=== PATIENT | male | born 1990 | race Caucasian/White ===

== ENCOUNTER 2020-07-21 10:54 | Emergency (ER) | payer MEDICAID, SELFPAY ==
--- NOTE | ~2020-07-21 | US_ITS ---
EXAMINATION: US ABDOMEN LIMITED CLINICAL INFORMATION: Right upper quadrant pain, elevated LFTs. COMPARISON: None TECHNIQUE: Real-time imaging of the right upper quadrant abdominal viscera. FINDINGS: PANCREAS: Visualized portions unremarkable. The tail is obscured by bowel gas shadowing. LIVER: Unremarkable. GALLBLADDER: Unremarkable. COMMON BILE DUCT: Normal in caliber measuring 0.5 cm in diameter. RIGHT KIDNEY: 11.0 cm. Unremarkable. FREE FLUID: None. US/US abdomen limited IMPRESSION: Unremarkable abdominal ultrasound. No significant hepatic abnormality.
[2020-07-21 11:03] VITALS: BP 120/86; PULSE 103; RESP 16; TEMP 38.7; O2SAT 94; BMI 29.5
--- NOTE | 2020-07-21 11:37 | ED.NAVMDI ---
HPI - Nausea/Vomiting/Diarrhea General Chief complaint: Nausea/Vomiting/Diarrhea Stated complaint: covid+ - vomiting Time Seen by Provider: 07/21/20 11:05 Source: patient Mode of arrival: ambulatory Limitations: no limitations History of Present Illness HPI Narrative: 30 y/o male who was recently diagnosed with COVID-19 on 07/15 presents to the ED with 3 days of nausea, vomiting and upper abdominal pain. He has not been able to tolerate any PO at home. Every time he tried he vomits. He reports loose stools 2 times per day for the last 2-3 days. No blood in vomitus or stool. He continues to have intermittent fevers with his COVID diagnosis. He has a dry cough but no SOB, chest pain or difficulty breathing. He states the abdominal pain is in the epigastric area and is burning and squeezing in nature. It comes and goes. MD elicited complaint: nausea, vomiting, diarrhea and abdominal pain Pertinent past history: other (COVID-19) Onset (ago): day(s) (3) Description of vomiting: watery Description of diarrhea: loose Associated nausea: Yes Associated abdominal pain: Yes Location of pain: epigastric Radiation: LUQ and RUQ Pain consistency: intermittent Severity: moderate Quality: stabbing and aching Exacerbating factors: eating Relieving factors: none Associated symptoms: myalgias, cough, fever/chills, headaches, loss of appetite, malaise, nausea/vomiting and fatigue Related Data Previous Rx's Medication Instructions Recorded ondansetron 4 mg PO Q6H PRN #10 tab 07/21/20 Allergies Allergy/AdvReac Type Severity Reaction Status Date / Time No Known Allergies Allergy Verified 07/21/20 11:06 Review of Systems Review of Systems: Constitutional: + Fever, + Chills ENT/Mouth: No sore throat, No Rhinorrhea, No Swallowing Difficulty Eyes: No Eye Pain, No Swelling, No Redness Cardiovascular: No Chest Pain, No SOB, No Orthopnea, No Edema Respiratory: No Cough, No Sputum, No Wheezing, No dyspnea Gastrointestinal: + Nausea, + Vomiting, + Diarrhea, + abdominal Pain, No Hematochezia, No Melena Genitourinary: No Dysuria, No Urinary Frequency, No Hematuria Musculoskeletal: No joint pain, + Myalgias Skin: No Skin Lesions, No rash Neuro: No Weakness, No Numbness, No Dizziness, + Headache Psych: No Anxiety/Panic, No Depression Heme/Lymph: No Bruising, No Lymphadenopathy Endocrine: No Polyuria, No Polydipsia Gastrointestinal: Gastrointestinal: Reports nausea PMFSH Past Medical History Attestation statement: The following information was validated with the patient. Medical History Asthma Social History Social History Alcohol intake: never Smoking Status: Never smoker Use of substances other than those prescribed or required for medical reasons: No Advance Directives: No Advance Directives Information Provided: No Physical Exam Vital Signs: Vital Signs: Last Vital Signs Temp 100.4 F 07/21/20 14:35 Pulse 91 07/21/20 14:35 Resp 15 07/21/20 14:35 BP 115/74 07/21/20 14:35 Pulse Ox 96 07/21/20 14:35 Body Mass Index 29.5 Appearance: Alert. Oriented X3. Appears ill Eyes: Pupils equal, round and reactive to light. ENT: Pharynx normal. Neck: Normal inspection. Neck supple. CVS: Tachycardia, regular rhythm. Pulses normal. Respiratory: No respiratory distress. Breath sounds normal. Abdomen: Soft with epigastric tenderness, no rebound or guarding. no RUQ tenderness, no hepatosplenomegaly. hypoeractive BS x4 Skin: Skin warm and dry. Normal skin color. Normal skin turgor. No rashes. Extremities: No lower extremity edema. Neuro: Oriented X 3. No motor deficit. No sensory deficit. Course Course Course Narrative: 30 y/o male with known COVID-19 dx on 07/15 presenting with N/V/D and epigastric abdominal pain. He arrives febrile and slightly tachycardic. Minimal respiratory symptoms. Will check labs, hydrate and give Zofran and PO tylenol once nausea improves. Reevaluation(s) Reevaluation #1: Nausea improved after zofran. toelrating PO. No vomiting episodes here, no diarrhea. His labs show normal WBC. Mild elevation in transaminasers with normal bilirubins, liekly due to COVID/acute vomiting but will get RUQ U/S given his pain. Negative Hooks's sign. Doubt acute cholecystitis. Reevaluation #2: Liver U/S is normal. Fever improved. Tolerating PO. He is clinically stable for discharge with Rx for antiemetic and plan to f/u with PCP. Patient agrees with plan. MDM - Nausea/Vomiting/Diarrhea Lab Data Result diagrams: 07/21/20 11:49 07/21/20 11:49 Labs: Lab Results 07/21/20 07/21/20 07/21/20 Range/Units 11:49 11:49 11:49 WBC 6.7 (4.8-10.8) X10*3/uL RBC 5.06 (4.60-5.80) X10*6/uL Hgb 15.0 (14.0-18.0) g/dl Hct 44.7 (42-52) % MCV 88.3 (80-98) fL MCH 29.6 (27.0-33.0) pg MCHC 33.6 (31.0-36.0) g/dl RDW 12.6 (11.0-16.0) % Plt Count 193 (160-400) X10*3/uL MPV 9.8 (9.4-12.4) fL Immature Gran % (Auto) 0.3 (0.0-0.4) % Neut % (Auto) 74.9 H (45-73) % Lymph % (Auto) 20.5 (20-40) % [place] % (Auto) 4.2 (2-11) % Eos % (Auto) 0.0 (0-4) % Baso % (Auto) 0.1 (0-2) % Lymph # (Auto) 1.4 (1.2-4.9) X10*3/uL [place] # (Auto) 0.3 (0.1-1.2) X10*3/uL Eos # (Auto) 0.0 (0.0-0.4) X10*3/uL Baso # (Auto) 0.0 (0.0-0.2) X10*3/uL Abs Immat Gran (auto) 0.02 (0.00-0.03) X10*3/uL Absolute Neuts (auto) 5.0 (2.0-8.3) X10*3/uL Absolute Nucleated RBC 0.000 (0.0-0.012) X10*3/uL Nucleated RBC % (auto) 0.0 (0.0-0.2) /100WBC Hold Blue Top SEE NOTE Sodium 139 (135-145) mmol/L Potassium 3.9 (3.3-5.1) mmol/L Chloride 101 (96-108) mmol/L Carbon Dioxide 27 (22-29) mmol/L Anion Gap 15 (12-20) BUN 14 (9-16) mg/dL Creatinine 1.10 (0.5-1.4) mg/dL Estim Creat Clear Calc 111.3 Estimated GFR > 60 Random Glucose 110 (60-115) mg/dL Lactic Acid (0.5-2.0) mmol/L Calcium 9.0 (8.4-10.2) mg/dL Magnesium 1.9 (1.6-2.6) mg/dL Total Bilirubin 0.7 (0.0-1.0) mg/dL Direct Bilirubin 0.3 (0.0-0.5) mg/dL AST 73 H (5-37) U/L ALT 137 H (0-40) U/L Alkaline Phosphatase 68 (39-117) U/L Total Protein 7.2 (6.5-8.0) g/dL Albumin 4.2 (3.5-5.0) g/dL Lipase 15 (8-78) U/L Urine Color Urine Appearance Urine pH (5.0-8.0) Ur Specific [place] (1.005-1.025) Urine Protein (NEG-TRACE) MG/DL Urine Glucose (UA) (NEG) MG/DL Urine Ketones (NEG) MG/DL Urine Blood (NEG) Urine Nitrite (NEG) Ur Leukocyte Esterase (NEG) Urine RBC (0) /HPF Urine WBC (0-4) /HPF Ur Squamous Epith Cells /LPF Urine Bacteria /LPF Urine Mucus /LPF 07/21/20 07/21/20 Range/Units 11:49 11:49 WBC (4.8-10.8) X10*3/uL RBC (4.60-5.80) X10*6/uL Hgb (14.0-18.0) g/dl Hct (42-52) % MCV (80-98) fL MCH (27.0-33.0) pg MCHC (31.0-36.0) g/dl RDW (11.0-16.0) % Plt Count (160-400) X10*3/uL MPV (9.4-12.4) fL Immature Gran % (Auto) (0.0-0.4) % Neut % (Auto) (45-73) % Lymph % (Auto) (20-40) % [place] % (Auto) (2-11) % Eos % (Auto) (0-4) % Baso % (Auto) (0-2) % Lymph # (Auto) (1.2-4.9) X10*3/uL [place] # (Auto) (0.1-1.2) X10*3/uL Eos # (Auto) (0.0-0.4) X10*3/uL Baso # (Auto) (0.0-0.2) X10*3/uL Abs Immat Gran (auto) (0.00-0.03) X10*3/uL Absolute Neuts (auto) (2.0-8.3) X10*3/uL Absolute Nucleated RBC (0.0-0.012) X10*3/uL Nucleated RBC % (auto) (0.0-0.2) /100WBC Hold Blue Top Sodium (135-145) mmol/L Potassium (3.3-5.1) mmol/L Chloride (96-108) mmol/L Carbon Dioxide (22-29) mmol/L Anion Gap (12-20) BUN (9-16) mg/dL Creatinine (0.5-1.4) mg/dL Estim Creat Clear Calc Estimated GFR Random Glucose (60-115) mg/dL Lactic Acid 1.0 (0.5-2.0) mmol/L Calcium (8.4-10.2) mg/dL Magnesium (1.6-2.6) mg/dL Total Bilirubin (0.0-1.0) mg/dL Direct Bilirubin (0.0-0.5) mg/dL AST (5-37) U/L ALT (0-40) U/L Alkaline Phosphatase (39-117) U/L Total Protein (6.5-8.0) g/dL Albumin (3.5-5.0) g/dL Lipase (8-78) U/L Urine Color YELLOW Urine Appearance CLEAR Urine pH 6.5 (5.0-8.0) Ur Specific [place] 1.025 (1.005-1.025) Urine Protein 1+ H (NEG-TRACE) MG/DL Urine Glucose (UA) NEG (NEG) MG/DL Urine Ketones 15 (NEG) MG/DL Urine Blood NEG (NEG) Urine Nitrite NEG (NEG) Ur Leukocyte Esterase NEG (NEG) Urine RBC 0-2 (0) /HPF Urine WBC 0-2 (0-4) /HPF Ur Squamous Epith Cells NONE /LPF Urine Bacteria NONE /LPF Urine Mucus TRACE /LPF Discharge Plan Discharge Clinical Impression: Gastroenteritis, COVID-19 Patient Disposition: Home, Self-Care Instructions: Acute Nausea and Vomiting (ED), COVID-19 (Coronavirus Disease 2019) (ED) Additional Instructions: Your lab workup today showed mild elevation in your liver enzymes. Your liver ultrasound was normal. Your symptoms are likely due to COVID-19. Recommend follow up with your doctor for repeat labs to ensure resolution. Recommend over the counter Imodium or Pepto Mismol for diarrhea and upset stomach. Stick to a bland diet while you are not feeling well - soup, toast. Take the prescribed medication as needed for nausea. If you have worsening symptoms come back to the ER for further evaluation. Prescriptions: New ondansetron 4 mg tablet,disintegrating 4 mg PO Q6H PRN (Reason: nausea and vomiting) Qty: 10 RF: 0
[2020-07-21] MEDS: ondansetron HCL 4 MG/2 ML VIAL IVPUSH (11:50)
[2020-07-21] MEDS: 0.9 % Sodium Chloride 1,000 ML 999 ML IVCONT (11:51)
--- NOTE | 2020-07-21 11:57 | PC.NURSE ---
Tylenol held at this time r/t pts nausea.
[2020-07-21 12:00] LABS: MANUAL DIFF FLAG NO
[2020-07-21 12:02] LABS: Glucose Urine UA NEG (NEG); Leukocyte Esterase Urine NEG (NEG); Nitrite Urine NEG (NEG); PH 6.5 (5.0-8.0); Specific Gravity - Urine 1.025 (1.005-1.025); Urine Blood NEG (NEG); Urine Ketones 15 MG/DL (NEG); Urine Protein 1+ MG/DL (NEG-TRACE)
[2020-07-21 12:03] LABS: Basophils Percent Auto 0.1 % (0-2); Hematocrit 44.7 % (42-52); Imm Gran Abs Auto 0.02 X10*3/uL (0.00-0.03); Imm Gran Pct Auto 0.3 % (0.0-0.4); Lymphocytes Absolute Auto 1.4 X10*3/uL (1.2-4.9); Lymphocytes Percent Auto 20.5 % (20-40); Mean Corpuscular HGB Conc 33.6 g/dl (31.0-36.0); Mean Corpuscular Hemoglobin 29.6 pg (27.0-33.0); Mean Corpuscular Volume 88.3 fL (80-98); Mean Platelet Volume 9.8 fL (9.4-12.4); Monocytes Absolute Auto 0.3 X10*3/uL (0.1-1.2); Monocytes Percent Auto 4.2 % (2-11); Neutrophils Percent Auto 74.9 % (45-73); Platelet Count 193 X10*3/uL (160-400); Red Blood Count 5.06 X10*6/uL (4.60-5.80); Red Cell Distribution Width 12.6 % (11.0-16.0); White Blood Count 6.7 X10*3/uL (4.8-10.8)
[2020-07-21 12:07] LABS: Appearance Urine CLEAR; Color Urine YELLOW
[2020-07-21 12:27] LABS: Mucus Urine TRACE /LPF; RBC Urine 0-2 /HPF (0); WBC Urine 0-2 /HPF (0-4)
[2020-07-21 12:28] VITALS: BP 128/73; PULSE 92; RESP 18; TEMP 37.9; O2SAT 97
[2020-07-21] MEDS: Lidocaine HCl Viscous 2 % 15 ML SOLUTION MUCOUS MEM (12:28)
[2020-07-21] MEDS: Acetaminophen 325 MG TABLET 975 MG PO (12:28)
[2020-07-21] MEDS: Magnesium Hydrox/Alum Hydrox 30 ML ORAL.SUSP PO (12:28)
[2020-07-21] MEDS: Omeprazole 40 MG CAPSULE.DR PO (12:28)
[2020-07-21 12:33] LABS: Alanine Aminotransferase 137 U/L (0-40); Albumin Level 4.2 g/dL (3.5-5.0); Alkaline Phosphatase 68 U/L (39-117); Anion Gap 15 (12-20); Aspartate Amino Transferase 73 U/L (5-37); Bilirubin Direct 0.3 mg/dL (0.0-0.5); Bilirubin Total 0.7 mg/dL (0.0-1.0); Blood Urea Nitrogen 14 mg/dL (9-16); Carbon Dioxide 27 mmol/L (22-29); Chloride 101 mmol/L (96-108); Creatinine Clr Calc Pharmacy 111.3; Estimated Glomerular Filt Rate > 60; Glucose Random 110 mg/dL (60-115); Lipase 15 U/L (8-78); Magnesium 1.9 mg/dL (1.6-2.6); Potassium 3.9 mmol/L (3.3-5.1); Sodium 139 mmol/L (135-145); Total Protein 7.2 g/dL (6.5-8.0)
--- NOTE | 2020-07-21 12:46 | PC.NURSE ---
Pt tolerating po medications and fluids at this time. Described upper abd pain as burning.
[2020-07-21 14:35] VITALS: BP 115/74; PULSE 91; RESP 15; TEMP 38; O2SAT 96
--- NOTE | 2020-07-21 15:12 | PC.NURSE ---
pt received in bed watching videos on phone. pending ultrasound and disposition. NAD at this time, no resp sx
[2020-07-21 16:26] VITALS: PULSE 105; RESP 14; TEMP 37.9; O2SAT 95
== END 2020-07-21 16:26 | disposition home or self-care (01) ==
PROVIDERS: Physician Assistant; Emergency Provider Emergency Medicine
DX: K52.9 Noninfective gastroenteritis and colitis, unspecified (principal); R10.10 Upper abdominal pain, unspecified; R11.2 Nausea with vomiting, unspecified; R00.0 Tachycardia, unspecified; Z86.16 Personal history of COVID-19
CPT/HCPCS: 36415; 76705; 80048; 80076; 81001; 81003; 83605; 83690; 83735; 85025; 87040; 96361; 96374; 99284; 99285; J2405

== ENCOUNTER 2020-07-23 11:22 | Emergency (ER) | payer MEDICAID, SELFPAY ==
--- NOTE | ~2020-07-23 | XR_ITS ---
EXAMINATION: XR CHEST CLINICAL INFORMATION: Shortness of breath COMPARISON: None TECHNIQUE: Frontal view of the chest was obtained. FINDINGS: Cardiac silhouette is normal in size. Low lung volumes. Subtle bibasilar opacities, nonspecific. No gross pleural effusion. No pneumothorax. Subtle suspected pleural thickening of the lateral right lung apex. XR/XR chest 1V IMPRESSION: Subtle bibasilar opacities demonstrated in hypoinflated lungs. Findings suggest atelectasis, however, developing infiltrate is within the differential. Clinical correlation recommended.
[2020-07-23 11:43] VITALS: BP 146/77; PULSE 99; RESP 18; TEMP 36.8; O2SAT 93; BMI 29.5
--- NOTE | 2020-07-23 11:58 | ECG_ITS ---
Test Reason : DIFFICULTY BREATHING Blood Pressure : / mmHG Vent. Rate : 094 BPM Atrial Rate : 094 BPM P-R Int : 138 ms QRS Dur : 082 ms QT Int : 332 ms P-R-T Axes : 033 040 011 degrees QTc Int : 415 ms Normal sinus rhythm Normal ECG No previous ECGs available Referred By: Ailyn Ochoa Electronically Signed By:GARY LORENZ MD
--- NOTE | 2020-07-23 12:08 | ED.URI ---
HPI - URI/Sore Throat General Chief Complaint: Upper Respiratory Symptoms Stated Complaint: diff breathing - covid+ Time Seen by Provider: 07/23/20 11:47 Source: patient Mode of arrival: ambulatory History of Present Illness HPI Narrative: 30-year-old male with a past medical history of asthma, COVID-19 positive on 07/13/2020, presenting to the ED complaining of cough, chest discomfort, and SOB since last night. Admits chest discomfort worse with deep inspiration. Also reports continued upper abdominal pain, nausea, and decreased p.o. intake. Of note patient was seen and treated in our ED on 07/21 for upper abdominal pain, nausea/vomiting, had transaminitis and negative abdomen US. Denies fever, chills, recent travel, LE edema, history blood clots, hormone use, cigarette smoking MD elicited complaint: cough Related Data Previous Rx's Medication Instructions Recorded ondansetron 4 mg PO Q6H PRN #10 tab 07/21/20 albuterol sulfate 2 puff INHALATION Q4-6H PRN #6.7 g 07/23/20 azithromycin See Rx Instructions .ROUTE 07/23/20 .COMPLEX #6 tab benzonatate [Tessalon Perles] 100 mg PO TID PRN #14 cap 07/23/20 cefpodoxime 200 mg PO BID 7 Days #14 tab 07/23/20 Allergies Allergy/AdvReac Type Severity Reaction Status Date / Time No Known Allergies Allergy Verified 07/21/20 11:06 Review of Systems Review of Systems: Constitutional: No Fever, No Chills, + fatigue Cardiovascular: + Chest Pain, + SOB, No Dyspnea on Exertion, No Orthopnea, No Edema Respiratory: + Cough, No Sputum, No Wheezing, + Dyspnea Gastrointestinal: + Nausea, + Vomiting, No Diarrhea, No Constipation, + Abdominal pain Musculoskeletal: No joint pain, + Myalgias, No Joint Swelling Skin: No Skin Lesions, No rash Neuro: + generalized weakness, No Numbness Yes all other systems are reviewed and are negative PMFSH Past Medical History Attestation statement: The following information was validated with the patient. Medical History Asthma Social History Social History Alcohol intake: never Smoking Status: Never smoker Use of substances other than those prescribed or required for medical reasons: No Advance Directives: No Advance Directives Information Provided: No Physical Exam Vital Signs: Vital Signs: Last Vital Signs Temp 98.3 F 07/23/20 11:43 Pulse 110 H 07/23/20 14:09 Resp 18 07/23/20 11:43 BP 146/77 H 07/23/20 11:43 Pulse Ox 93 07/23/20 16:34 Body Mass Index 29.5 Const: General: cooperative and healthy appearing Orientation/consciousness: patient oriented x3 Limitations: no limitations HENMT: Head: Yes normal to inspection Ears: hearing grossly normal bilaterally General nose exam: Normal external nose present Face and sinus: Yes normal facial exam Eyes: General: appearance normal, both eyes and all related structures EOM: EOMs intact bilaterally Neck: Neck: Yes normal visual inspection and Yes no meningeal signs Chest: Chest palpation & inspection: no crepitus and tenderness (Anterior lower ribs diffusely) Resp: Effort & Inspection: normal respiratory effort Auscultation: clear to auscultation bilaterally, no wheezes and diminished lung sounds diffuse Cardio: Rate: regular rate Heart sounds: S1 normal heart sound present and S2 normal heart sound present GI: Inspection: Yes normal to inspection Palpation (GI): Soft to palpation, Tenderness to palpation present (GI) in the epigastrum, no guarding and not rigid Skin: Rashes: no rashes Wounds: no wounds Neuro: General: patient oriented x3, tone normal and no meningeal signs Extrem: General: Yes normal to inspection, Yes no pedal edema and Yes no calf tenderness Course Course Course Narrative: -no leukocytosis, D-dimer negative, ferritin/LDH/CRP elevated, troponin negative, AST/ALT elevated but improved from prior visit XR chest 1V IMPRESSION: Subtle bibasilar opacities demonstrated in hypoinflated lungs. Findings suggest atelectasis, however, developing infiltrate is within the differential. Clinical correlation recommended. >> lactic, blood cultures, and IV antibiotics ordered. Will ambulate with pulse after completion of IV antibiotics -1420--patient maintain saturation greater than 92% on RA during ambulation MDM - URI/Sore Throat MDM Narrative Medical decision making narrative: 30-year-old male with a past medical history of asthma, COVID-19 positive on 07/13/2020, presenting to the ED complaining of cough, chest discomfort, and SOB since last night. Admits chest discomfort worse with deep inspiration. Also reports continued upper abdominal pain, nausea, and decreased p.o. intake. On exam VS as, NAD, lungs are decreased breath sounds throughout, abdomen soft epigastric TTP, no calf tenderness or pedal edema. Concern for continued COVID-19 symptoms vs PE vs viral pneumonia. Lower concern for ACS/cholecystitis/lithiasis or pancreatitis with negative workup a few days ago. Plan: EKG, labs, CXR, albuterol, GI cocktail,reassess Medical Records Attestation: I reviewed the patient's medical records. Lab Data Attestation: I reviewed the patient's lab results. Result diagrams: 07/23/20 12:20 07/23/20 12:20 Labs: Lab Results 07/23/20 07/23/20 07/23/20 Range/Units 12:20 12:20 12:20 WBC 7.9 (4.8-10.8) X10*3/uL RBC 5.18 (4.60-5.80) X10*6/uL Hgb 15.3 (14.0-18.0) g/dl Hct 45.3 (42-52) % MCV 87.5 (80-98) fL MCH 29.5 (27.0-33.0) pg MCHC 33.8 (31.0-36.0) g/dl RDW 12.3 (11.0-16.0) % Plt Count 217 (160-400) X10*3/uL MPV 9.7 (9.4-12.4) fL Immature Gran % (Auto) 0.4 (0.0-0.4) % Neut % (Auto) 73.0 (45-73) % Lymph % (Auto) 20.9 (20-40) % [place] % (Auto) 5.7 (2-11) % Eos % (Auto) 0.0 (0-4) % Baso % (Auto) 0.0 (0-2) % Lymph # (Auto) 1.7 (1.2-4.9) X10*3/uL [place] # (Auto) 0.5 (0.1-1.2) X10*3/uL Eos # (Auto) 0.0 (0.0-0.4) X10*3/uL Baso # (Auto) 0.0 (0.0-0.2) X10*3/uL Abs Immat Gran (auto) 0.03 (0.00-0.03) X10*3/uL Absolute Neuts (auto) 5.8 (2.0-8.3) X10*3/uL Absolute Nucleated RBC 0.000 (0.0-0.012) X10*3/uL Nucleated RBC % (auto) 0.0 (0.0-0.2) /100WBC PT (10.8-13.0) SEC INR (0.9-1.1) APTT (24.1-38.0) SEC D-Dimer < 200 NG/ML Sodium 140 (135-145) mmol/L Potassium 3.9 (3.3-5.1) mmol/L Chloride 100 (96-108) mmol/L Carbon Dioxide 28 (22-29) mmol/L Anion Gap 16 (12-20) BUN 14 (9-16) mg/dL Creatinine 1.08 (0.5-1.4) mg/dL Estim Creat Clear Calc 113.3 Estimated GFR > 60 Random Glucose 102 (60-115) mg/dL Calcium 9.2 (8.4-10.2) mg/dL Magnesium 2.5 (1.6-2.6) mg/dL Ferritin (20-250) ng/mL Total Bilirubin 1.0 (0.0-1.0) mg/dL Direct Bilirubin 0.4 (0.0-0.5) mg/dL AST 67 H (5-37) U/L ALT 110 H (0-40) U/L Alkaline Phosphatase 74 (39-117) U/L Lactate Dehydrogenase (118-273) U/L Troponin I High Sens (<3.5-35.0) ng/L C-Reactive Protein (< or = 0.50) mg/dL B-Natriuretic Peptide (<100) pg/mL Total Protein 7.4 (6.5-8.0) g/dL Albumin 4.2 (3.5-5.0) g/dL Lipase (8-78) U/L Procalcitonin ng/mL 07/23/20 07/23/20 07/23/20 Range/Units 12:20 12:20 12:20 WBC (4.8-10.8) X10*3/uL RBC (4.60-5.80) X10*6/uL Hgb (14.0-18.0) g/dl Hct (42-52) % MCV (80-98) fL MCH (27.0-33.0) pg MCHC (31.0-36.0) g/dl RDW (11.0-16.0) % Plt Count (160-400) X10*3/uL MPV (9.4-12.4) fL Immature Gran % (Auto) (0.0-0.4) % Neut % (Auto) (45-73) % Lymph % (Auto) (20-40) % [place] % (Auto) (2-11) % Eos % (Auto) (0-4) % Baso % (Auto) (0-2) % Lymph # (Auto) (1.2-4.9) X10*3/uL [place] # (Auto) (0.1-1.2) X10*3/uL Eos # (Auto) (0.0-0.4) X10*3/uL Baso # (Auto) (0.0-0.2) X10*3/uL Abs Immat Gran (auto) (0.00-0.03) X10*3/uL Absolute Neuts (auto) (2.0-8.3) X10*3/uL Absolute Nucleated RBC (0.0-0.012) X10*3/uL Nucleated RBC % (auto) (0.0-0.2) /100WBC PT 13.5 H (10.8-13.0) SEC INR 1.1 (0.9-1.1) APTT 33.7 (24.1-38.0) SEC D-Dimer NG/ML Sodium (135-145) mmol/L Potassium (3.3-5.1) mmol/L Chloride (96-108) mmol/L Carbon Dioxide (22-29) mmol/L Anion Gap (12-20) BUN (9-16) mg/dL Creatinine (0.5-1.4) mg/dL Estim Creat Clear Calc Estimated GFR Random Glucose (60-115) mg/dL Calcium (8.4-10.2) mg/dL Magnesium (1.6-2.6) mg/dL Ferritin 2573 H (20-250) ng/mL Total Bilirubin (0.0-1.0) mg/dL Direct Bilirubin (0.0-0.5) mg/dL AST (5-37) U/L ALT (0-40) U/L Alkaline Phosphatase (39-117) U/L Lactate Dehydrogenase 346 H (118-273) U/L Troponin I High Sens < 3.5 (<3.5-35.0) ng/L C-Reactive Protein 6.83 H (< or = 0.50) mg/dL B-Natriuretic Peptide (<100) pg/mL Total Protein (6.5-8.0) g/dL Albumin (3.5-5.0) g/dL Lipase 26 (8-78) U/L Procalcitonin ng/mL 07/23/20 07/23/20 Range/Units 12:20 12:20 WBC (4.8-10.8) X10*3/uL RBC (4.60-5.80) X10*6/uL Hgb (14.0-18.0) g/dl Hct (42-52) % MCV (80-98) fL MCH (27.0-33.0) pg MCHC (31.0-36.0) g/dl RDW (11.0-16.0) % Plt Count (160-400) X10*3/uL MPV (9.4-12.4) fL Immature Gran % (Auto) (0.0-0.4) % Neut % (Auto) (45-73) % Lymph % (Auto) (20-40) % [place] % (Auto) (2-11) % Eos % (Auto) (0-4) % Baso % (Auto) (0-2) % Lymph # (Auto) (1.2-4.9) X10*3/uL [place] # (Auto) (0.1-1.2) X10*3/uL Eos # (Auto) (0.0-0.4) X10*3/uL Baso # (Auto) (0.0-0.2) X10*3/uL Abs Immat Gran (auto) (0.00-0.03) X10*3/uL Absolute Neuts (auto) (2.0-8.3) X10*3/uL Absolute Nucleated RBC (0.0-0.012) X10*3/uL Nucleated RBC % (auto) (0.0-0.2) /100WBC PT (10.8-13.0) SEC INR (0.9-1.1) APTT (24.1-38.0) SEC D-Dimer NG/ML Sodium (135-145) mmol/L Potassium (3.3-5.1) mmol/L Chloride (96-108) mmol/L Carbon Dioxide (22-29) mmol/L Anion Gap (12-20) BUN (9-16) mg/dL Creatinine (0.5-1.4) mg/dL Estim Creat Clear Calc Estimated GFR Random Glucose (60-115) mg/dL Calcium (8.4-10.2) mg/dL Magnesium (1.6-2.6) mg/dL Ferritin (20-250) ng/mL Total Bilirubin (0.0-1.0) mg/dL Direct Bilirubin (0.0-0.5) mg/dL AST (5-37) U/L ALT (0-40) U/L Alkaline Phosphatase (39-117) U/L Lactate Dehydrogenase (118-273) U/L Troponin I High Sens (<3.5-35.0) ng/L C-Reactive Protein (< or = 0.50) mg/dL B-Natriuretic Peptide < 10 (<100) pg/mL Total Protein (6.5-8.0) g/dL Albumin (3.5-5.0) g/dL Lipase (8-78) U/L Procalcitonin 0.08 ng/mL Discharge Plan Discharge Clinical Impression: Pneumonia due to COVID-19 virus Patient Disposition: Home, Self-Care Instructions: COVID-19 (Coronavirus Disease 2019) (ED) Additional Instructions: You have COVID pneumonia, azithromycin and cefpodoxime or antibiotics, take as prescribed It is important for you to use albuterol inhaler at home for wheezing/shortness of breath Tessalon Perles for cough Call your doctor for close follow-up Rest, stay hydrated You can anticipate to be lethargic, feel slightly short of breath and have some chest pain, however this becomes worse or constant, you fever unresolved with Tylenol Motrin, or unable to eat or drink please return to the ED immediately Prescriptions: New azithromycin 250 mg tablet See Rx Instructions .ROUTE .COMPLEX Qty: 6 RF: 0 benzonatate [Tessalon Perles] 100 mg capsule 100 mg PO TID PRN (Reason: cough) Qty: 14 RF: 0 albuterol sulfate 90 mcg/actuation HFA aerosol inhaler 2 puff inhalation Q4-6H PRN (Reason: shortness of breath or wheezing) Qty: 6.7 RF: 0 cefpodoxime 200 mg tablet 200 mg PO BID 7 Days Qty: 14 RF: 0 No Action ondansetron 4 mg tablet,disintegrating 4 mg PO Q6H PRN (Reason: nausea and vomiting) Qty: 10 RF: 0 Referrals: [facility] [Primary Care Provider] - 2 days
[2020-07-23] MEDS: Albuterol Sulfate 90 MCG 8 GM INHALER 4 PUFF INHALE (12:15)
[2020-07-23 12:25] VITALS: O2SAT 94
[2020-07-23 12:26] LABS: MANUAL DIFF FLAG NO
[2020-07-23 12:28] LABS: Hematocrit 45.3 % (42-52); Hemoglobin 15.3 g/dl (14.0-18.0); Imm Gran Abs Auto 0.03 X10*3/uL (0.00-0.03); Imm Gran Pct Auto 0.4 % (0.0-0.4); Lymphocytes Absolute Auto 1.7 X10*3/uL (1.2-4.9); Lymphocytes Percent Auto 20.9 % (20-40); Mean Corpuscular HGB Conc 33.8 g/dl (31.0-36.0); Mean Corpuscular Hemoglobin 29.5 pg (27.0-33.0); Mean Corpuscular Volume 87.5 fL (80-98); Mean Platelet Volume 9.7 fL (9.4-12.4); Monocytes Absolute Auto 0.5 X10*3/uL (0.1-1.2); Monocytes Percent Auto 5.7 % (2-11); Neutrophils Absolute Auto 5.8 X10*3/uL (2.0-8.3); Platelet Count 217 X10*3/uL (160-400); Red Blood Count 5.18 X10*6/uL (4.60-5.80); Red Cell Distribution Width 12.3 % (11.0-16.0); White Blood Count 7.9 X10*3/uL (4.8-10.8)
[2020-07-23] MEDS: 0.9 % Sodium Chloride 1,000 ML 999 ML IVCONT (12:29)
[2020-07-23] MEDS: ondansetron HCL 4 MG/2 ML VIAL IVPUSH (12:29)
[2020-07-23] MEDS: Famotidine/PF 20 MG/2 ML VIAL IVPUSH (12:29)
[2020-07-23 12:34] LABS: INTERNATIONAL NORM RATIO 1.1 (0.9-1.1); Prothrombin Time 13.5 SEC (10.8-13.0)
[2020-07-23 12:36] LABS: Partial Thromboplastin Time 33.7 SEC (24.1-38.0)
[2020-07-23 12:52] LABS: D Dimer < 200 NG/ML
[2020-07-23 13:00] LABS: Alanine Aminotransferase 110 U/L (0-40); Albumin Level 4.2 g/dL (3.5-5.0); Alkaline Phosphatase 74 U/L (39-117); Anion Gap 16 (12-20); Aspartate Amino Transferase 67 U/L (5-37); Bilirubin Direct 0.4 mg/dL (0.0-0.5); Blood Urea Nitrogen 14 mg/dL (9-16); Calcium 9.2 mg/dL (8.4-10.2); Carbon Dioxide 28 mmol/L (22-29); Chloride 100 mmol/L (96-108); Creatinine Clr Calc Pharmacy 113.3; Estimated Glomerular Filt Rate > 60; Glucose Random 102 mg/dL (60-115); Magnesium 2.5 mg/dL (1.6-2.6); Potassium 3.9 mmol/L (3.3-5.1); Sodium 140 mmol/L (135-145); Total Protein 7.4 g/dL (6.5-8.0)
[2020-07-23 13:01] LABS: C Reactive Protein 6.83 mg/dL (< or = 0.50); Lactate Dehydrogenase 346 U/L (118-273); Lipase 26 U/L (8-78)
[2020-07-23 13:04] LABS: B Type Natriuretic Peptide < 10 pg/mL (<100)
[2020-07-23 13:05] LABS: Troponin-I High Sensitivity < 3.5 ng/L (<3.5-35.0)
[2020-07-23 13:10] VITALS: O2SAT 95
[2020-07-23] MEDS: Magnesium Hydrox/Alum Hydrox 30 ML ORAL.SUSP PO (14:07)
[2020-07-23] MEDS: Lidocaine HCl Viscous 2 % 15 ML SOLUTION MUCOUS MEM (14:07)
[2020-07-23] MEDS: cefTRIAXone sodium 1 GM in 0.9 % Sodium Chloride 50 ML IV (14:07)
[2020-07-23 14:08] LABS: Ferritin 2573 ng/mL (20-250)
[2020-07-23 14:09] VITALS: PULSE 110; O2SAT 96
[2020-07-23 14:16] LABS: Procalcitonin 0.08 ng/mL
[2020-07-23] MEDS: Azithromycin 500 MG in 0.9 % Sodium Chloride 250 ML 125 MG IV (15:11)
[2020-07-23 16:34] VITALS: O2SAT 93
== END 2020-07-23 17:18 | disposition home or self-care (01) ==
PROVIDERS: Physician Assistant; Emergency Provider Emergency Medicine
DX: U07.1 COVID-19 (principal); J12.82 Pneumonia due to coronavirus disease 2019
CPT/HCPCS: 36415; 71045; 80048; 80076; 82728; 83615; 83690; 83735; 83880; 84145; 84484; 85025; 85379; 85610; 85730; 86140; 93005; 96361; 96365; 96368; 96375; 99284; 99285; J0456; J0696; J2405

== ENCOUNTER 2023-02-12 09:56 | Outpatient (AMB) | payer MEDICAID, SELFPAY ==
--- NOTE | 2023-02-12 10:22 | MHC.OFFVIS ---
Intake Intake Visit Reasons: Vasectomy consult Intake Note: New Patient presents for initial visit for vasectomy consult Urology Medications: none Blood Thinner: none Children# 6 Expected Children# 0 Acetylene Torch Burner Required: No Accompanied by: Spouse Allergies No Known Allergies Allergy (Verified 02/12/23 21:43) Medication List - Last Reconciled 02/12/23 by MARINO Angulo No Known Home Meds HPI HPI Comments History of Present Illness Details Wilfredo is a pleasant 32 year old male patient of Dr. Leblanc who was accompanied by his significant other at today's office visit. He presents to the office today for - vasectomy evaluation Vasectomy evaluation The patient presents for vasectomy consultation.? He is currently single He has fathered -? 6 children, with a single partner ? The youngest child is - his 9 month old twins and his oldest is 11 years old His partner is aware and permissive for a vasectomy Current form of control is hormones; his significant other is on the Depo shot Current employment is hes not working as he states he is disabled The vasectomy may be complicated due to a history of no complicating issues. Patient education has been provided via A[employer] video, via printed information, risks of failure, recovery time, bruising and potential pain syndrome have been stressed Discussion today focused on the presence of vasectomy and the risks, benefits and alternatives that are available. Vasectomy as intended as a permanent form of control. Printed information and literature was provided to the patient. Overall there is a one in 2500 failure rate. This can occur at any time after vasectomy. Risks were discussed highlighting hematoma, spermatocele, epididymal congestion, development of sperm antibodies, and development of chronic pain estimated between 1-5%. The procedure was reviewed in detail. Anatomical diagrams of the male genitalia were used to explain the location of the vas deferens. The vas deferens will be transected, the proximal end will be cauterized, a metal clip would be applied to separate the 2 vas deferens ends. It was explained the procedure will be done in the office and takes approximately 10-15 minutes. Less common problems that arise with vasectomy include hematoma, bleeding, allergic reaction to anesthetic, epididymal infection, epididymal congestion, scrotal discomfort, spermatic leak, spermatic granuloma and the possibility of antisperm antibodies. He understands these risks and wishes to proceed. Consent was signed at the office today. He also understands that it takes 12 weeks for sperm to fully clear the system. He will need to provide a semen sample at 12 weeks and if this is not clear a 2nd sample at 16 weeks. Medical clearance to stop using protection will only be provided if he satisfies published criteria for sperm clearance. [facility] Medical History (Updated 02/12/23 @ 21:53 by MARINO Angulo) Allergies Anxiety Asthma Social History Alcohol intake: never Review of Systems Const All systems reviewed & are unremarkable except as noted in HPI and below Physical Exam Const General: cooperative, healthy appearing, comfortable, no acute distress, well developed, alert and awake Orientation/consciousness: patient oriented x3 Limitations: no limitations HEENT Head: Yes normal to inspection, Yes normocephalic and Yes atraumatic Ears: hearing grossly normal bilaterally Eyes General: appearance normal, both eyes and all related structures Neck Neck: Yes normal visual inspection and Yes trachea midline Chest Chest palpation & inspection: normal inspection of the chest Resp Effort & Inspection: normal respiratory effort and able to speak in complete sentences Cardio Rate: regular rate GI Inspection: Yes normal to inspection General: Yes no CVA tenderness Male General Exam: Yes normal external exam Penis: normal penis Meatus: meatus normal Scrotum: scrotum normal Testes: Testes normal Back/Spine/Pelvis Back: no CVA tenderness Skin General skin exam: no rashes or lesions noted Neuro General: patient oriented x3 Extrem General: Yes normal to inspection Psych Appearance: grossly normal and well kempt Mental Status: mental status grossly normal Speech and movement: Normal speech and movement present and Clear speech present Affect: normal affect Attitude: cooperative Thought process: Normal thought process present Thought content: Normal thought content present Insight: Good insight present (Psych) Judgement: Good judgement present (Psych) Results AMB Urinalysis, Automated UA Leukoctes 0 Adelaida/uL Last Edit by Eula Orellana on 02/12/23 10:41 UA Nitrite Negative Last Edit by Eula Orellana on 02/12/23 10:41 UA Urobilinogen 0.2 mg/dL Last Edit by Eula Orellana on 02/12/23 10:41 UA Protein 0 mg/dL Last Edit by Eula Orellana on 02/12/23 10:41 UA pH 8.0 Last Edit by Eula Dolanbekah on 02/12/23 10:41 UA Blood 0 Reddy/uL Last Edit by Eula Dolanbekah on 02/12/23 10:41 UA Specific [place] 1.015 Last Edit by Eula Kelsibekah on 02/12/23 10:41 UA Ketone Negative Last Edit by Eula Kelsibekah on 02/12/23 10:41 UA Bilirubin 0 mg/dL Last Edit by Leifbradley Kelsibekah on 02/12/23 10:41 UA Glucose 0 mg/dL Last Edit by Eula Kelsibekah on 02/12/23 10:41 Results Reviewed Results Reviewed: Laboratory Last Values Urine pH (Auto) 8.0 02/12/23 10:39 Specific [place] (Auto) 1.015 02/12/23 10:39 Urine Protein (Auto) 0 mg/dL 02/12/23 10:39 Glucose (UA)(Auto) 0 mg/dL 02/12/23 10:39 Urine Ketones (Auto) Negative 02/12/23 10:39 Urine Blood (Auto) 0 Reddy/uL 02/12/23 10:39 Urine Nitrite (Auto) Negative 02/12/23 10:39 Urine Bilirubin (Auto) 0 mg/dL 02/12/23 10:39 Urine Urobilinogen (Auto) 0.2 mg/dL 02/12/23 10:39 Leukocyte Esterase (Auto) 0 Adelaida/uL 02/12/23 10:39 Assessment & Plan Assessment & Plan (1) Anxiety about health: Code(s): R45.89 - Other symptoms and signs involving emotional state (2) Vasectomy evaluation: Code(s): Z30.09 - Encounter for other general counseling and advice on contraception Plan In office urinalysis results reviewed with the patient today; as noted above. Discussed at length vasectomy Medications provided; discussed taking them as prescribed All questions were answered Will schedule for Vasectomy with as discussed. Orders: Orders AMB Urinalysis Automated Today Z13.9 - Encounter for screening, unspecified Medications: New acetaminophen-codeine 300-30 mg 1 tab PO Q8H 3 days 9 tabs 0RF R45.89 - Other symptoms and signs involving emotional state diazepam (Valium) take one tab when arrive for procedure 2 mg PO DAILY 2 tabs 0RF anxiety R45.89 - Other symptoms and signs involving emotional state Patient Instructions: The patient had an opportunity to ask questions regarding the treatment plan. All questions were answered. Physical exam, labs, and imaging were discussed and reviewed in detail. As well as risks, benefits, and discussion of treatment choices. No major barriers to understanding were identified. The patient expressed understanding and agreement with the above treatment plan. The patient was made aware they should contact our office by phone for worsening of their current condition, the appearance of new symptoms, or with any questions or concerns. Compliance is encouraged with any medications and follow up testing that is ordered. It is a privilege to be allowed the opportunity to participate in? your urological care.? Again, if you have any questions or concerns If you have any questions or concerns please do not hesitate to contact me. The office is [phone]. This note is constructed using voice recognition software. While every effort has been made to ensure accuracy mechanic errors may have been included. Yours sincerely, MARINO Angulo Coding Level of Care Code New Pt Level 4 (71543) Diagnoses Anxiety about health R45.89 Vasectomy evaluation Z30.09
== END 2023-02-12 11:09 | disposition home or self-care (01) ==
PROVIDERS: Visit Provider Nurse Practitioner Family
DX: R45.89 Other symptoms and signs involving emotional state (principal); Z30.09 Encounter for other general counseling and advice on contraception
CPT/HCPCS: 99204

== ENCOUNTER → 2023-02-12 09:56 | Outpatient (BNVA) | payer MEDICAID, SELFPAY | PROVIDERS: Visit Provider Nurse Practitioner Family | DX: Z01.818 Encounter for other preprocedural examination (principal); Z30.09 Encounter for other general counseling and advice on contraception; R45.89 Other symptoms and signs involving emotional state | CPT/HCPCS: 81003; 99212 ==